=== PATIENT | male | born 1945 | race Hispanic/Latino ===

== ENCOUNTER 2020-07-19 08:39 | Day surgery (SDC) | payer OTHER, MEDICARE ==
[2020-07-19] VITALS (12 sets, daily range): BP systolic 93–143; BP diastolic 54–88
[~2020-07-19 08:39] MED LIST: ACET-2247 PO; APIX5TAB PO; ASCO500T20 PO; FURO20TA4 PO; INSU100V12 SQ; MAGN296S76 PO; PANT20TA PO; PARO10TA71 PO; POTA20TA82 PO; ZINC220T4 PO
[2020-07-19 08:59] LABS: BASOPHILS % (AUTO) 0.5 % (0.0-5.0); EOSINOPHILS % (AUTO) 2.7 % (0.0-8.0); HEMATOCRIT 33.7 % (42-54); LYMPHOCYTES % (AUTO) 28.6 % (21.0-51.0); MEAN CORPUSCULAR HEMOGLOBIN 25.3 pg (27.0-33.0); MEAN CORPUSCULAR HGB CONC 30.6 g/dL (32.0-36.0); MEAN CORPUSCULAR VOLUME 82.8 fL (79-99); MONOCYTES % (AUTO) 6.5 % (3.0-13.0); NEUTROPHILS % (AUTO) 61.5 % (40.0-77.0); PLATELET COUNT (AUTO) 273 K/uL (130-400); RED BLOOD CELL COUNT(AUTO) 4.07 MIL/uL (4.50-6.20); RED CELL DISTRIBUTION WIDTH 14.7 % (11.0-15.5); WHITE BLOOD COUNT (AUTO) 8.9 K/uL (4.8-10.8)
[2020-07-19] MEDS ORDERED: PROPOFOL 10 MG/ML 20ML VIAL IV ONE (10:05)
[2020-07-19] MEDS ORDERED: MIDAZOLAM HCL 1 MG/ML 2ML VIAL ONE (10:06)
== END 2020-07-19 13:00 | disposition home or self-care (01) ==
LOC: ENDO 08:39 → DAH 08:39 → ENDO 13:00
PROVIDERS: ATTEND Surgery
DX: Z43.3 Encounter for attention to colostomy (principal); Z20.822 Contact with and (suspected) exposure to COVID-19; I48.91 Unspecified atrial fibrillation; E78.5 Hyperlipidemia, unspecified; I10 Essential (primary) hypertension; K21.9 Gastro-esophageal reflux disease without esophagitis; E11.9 Type 2 diabetes mellitus without complications; Z79.899 Other long term (current) drug therapy; Z79.4 Long term (current) use of insulin; Z98.890 Other specified postprocedural states
CPT/HCPCS: 36415; 44388; 80048; 82948; 85025; 93005; A4215 ×2; A4221; A4222; A4223; A4606; A4620; A4663; C9803; J2250; J2704; U0003; 45378

== ENCOUNTER 2021-06-30 11:48 | Emergency (ER) | payer MEDICARE ==
[~2021-06-30] VITALS: Ht 170.2 cm; Wt 71.7 kg
[~2021-06-30 11:48] MED LIST changes: +POTA-202 PO; -POTA20TA82 PO
[2021-06-30 11:52] VITALS: BP 101/64
[2021-06-30 12:30] LABS: BASOPHILS % (AUTO) 0.3 % (0.0-5.0); HEMATOCRIT 28.3 % (42-54); LYMPHOCYTES % (AUTO) 27.2 % (21.0-51.0); MEAN CORPUSCULAR HEMOGLOBIN 29.5 pg (27.0-33.0); MEAN CORPUSCULAR HGB CONC 32.2 g/dL (32.0-36.0); MEAN CORPUSCULAR VOLUME 91.9 fL (79-99); MONOCYTES % (AUTO) 7.5 % (3.0-13.0); NEUTROPHILS % (AUTO) 63.7 % (40.0-77.0); PLATELET COUNT (AUTO) 133 K/uL (130-400); RED BLOOD CELL COUNT(AUTO) 3.08 MIL/uL (4.50-6.20); RED CELL DISTRIBUTION WIDTH 16.4 % (11.0-15.5); WHITE BLOOD COUNT (AUTO) 7.1 K/uL (4.8-10.8)
[2021-06-30 12:42] LABS: CREATININE 0.9 mg/dL (0.5-1.5); POTASSIUM 3.2 mmol/L (3.5-5.1)
[2021-06-30 12:47] LABS: ALBUMIN 1.2 g/dL (3.5-5.0); BILIRUBIN,TOTAL 0.3 mg/dL (0.2-1.0); CRP QUANTITATIVE 53.7 mg/L (0.00-9.0); TOTAL PROTEIN, SERUM 6.2 g/dL (6.0-8.3)
[2021-06-30] MEDS ORDERED: POTASSIUM BICARB/CIT AC 25 MEQ TABLET.EFF PO ONE (13:00)
== END 2021-06-30 16:28 ==
LOC: EDH 11:48
DX: Z48.01 Encounter for change or removal of surgical wound dressing (principal); I10 Essential (primary) hypertension; E11.9 Type 2 diabetes mellitus without complications; F03.90 Unspecified dementia, unspecified severity, without behavioral disturbance, psychotic disturbance, mood disturbance, and anxiety; Z98.890 Other specified postprocedural states; Z79.4 Long term (current) use of insulin; Z79.899 Other long term (current) drug therapy
CPT/HCPCS: 36415; 74176; 80053; 85025; 86140; 87070; 87076; 87077; 87186